=== PATIENT | female | born 1985 | race Caucasian/White ===

== ENCOUNTER 2017-12-18 09:02 | Emergency (ER) | payer MEDICAID ==
[~2017-12-18] VITALS: Ht 154.9 cm; Wt 45.0 kg
[~2017-12-18 09:02] MED LIST: CITA20TA4 PO
[2017-12-18 09:12] VITALS: BP 151/88; PULSE 104; RESP 16; TEMP 98.2; O2SAT 100
--- NOTE | 2017-12-18 09:26 | PD ---
HPI Chief Complaint: Related Problem Time Seen by Provider: 09:25 Travel History International Travel<30 days: No Contact w/Intl Traveler<30days: No Traveled to known affect area: No History of Present Illness HPI 32-year-old female came to the emergency room with history of vaginal spotting. She tested positive for on a home test yesterday. Patient says her last menstrual cycle was October 24. Patient is A2. She is also having some pelvic cramps. Vital signs are stable. Her spotting started this morning. No history of nausea vomiting. No radiation of the pain. No aggravating or relieving factors identified to the pain. PFSH Past Medical History Narrative Medical List of her past medical, surgical, social and family history is reviewed from the nursing note Depression: Yes ?: LMP: 09/13/17 Past Surgical History Cholecystectomy: Yes Social History Alcohol Use: Yes (occ) Tobacco Use: Yes (1 ppd) Substance Use: No Allergies-Medications (Allergen,Severity, Reaction): Coded Allergies: No Known Allergies (Unverified Adverse Reaction, Unknown, 12/18/17) Comments No known drug allergies. Reported Meds & Prescriptions Reported Meds & Active Scripts Active Narrative Medication List of her home medications reviewed from the nursing note Review of Systems Except as stated in HPI: all other systems reviewed are Neg Genitourinary: Positive: Vaginal Bleeding Physical Exam Narrative GENERAL: Awake, alert, no obvious distress SKIN: Focused skin assessment warm/dry. HEAD: Atraumatic. Normocephalic. EYES: Pupils equal and round. No scleral icterus. No injection or drainage. ENT: No nasal bleeding or discharge. Mucous membranes pink and moist. NECK: Trachea midline. No JVD. CARDIOVASCULAR: Regular rate and rhythm. No murmur appreciated. RESPIRATORY: No accessory muscle use. Clear to auscultation. Breath sounds equal bilaterally. GASTROINTESTINAL: Abdomen soft, non-tender, nondistended. Hepatic and splenic margins not palpable. MUSCULOSKELETAL: No obvious deformities. No clubbing. No cyanosis. No edema. NEUROLOGICAL: Awake and alert. No obvious cranial nerve deficits. Motor grossly within normal limits. Normal speech. PSYCHIATRIC: Appropriate mood and affect; insight and judgment normal. Data Data Last Documented VS Vital Signs Date Time Temp Pulse Resp B/P (MAP) Pulse Ox O2 Delivery O2 Flow Rate FiO2 12/18/17 09:12 98.2 104 16 151/88 (109) 100 Orders Orders Beta Hcg (Quant/Titer) (12/18/17 09:52) Complete Blood Count With Diff (12/18/17 09:52) Basic Metabolic Panel (Bmp) (12/18/17 09:52) Type And Screen (12/18/17 09:52) Ed Urine Pregnancytest Poc (12/18/17 09:52) Potassium Chloride Eff (K-Lyte Cl Eff) (12/18/17 11:30) Ed Discharge Order (12/18/17 11:26) Labs Laboratory Tests Test 12/18/17 10:30 White Blood Count 6.4 TH/MM3 Red Blood Count 4.69 MIL/MM3 Hemoglobin 14.3 GM/DL Hematocrit 41.7 % Mean Corpuscular Volume 89.1 FL Mean Corpuscular Hemoglobin 30.6 PG Mean Corpuscular Hemoglobin Concent 34.3 % Red Cell Distribution Width 12.7 % Platelet Count 213 TH/MM3 Mean Platelet Volume 9.9 FL Neutrophils (%) (Auto) 67.1 % Lymphocytes (%) (Auto) 20.1 % Monocytes (%) (Auto) 10.3 % Eosinophils (%) (Auto) 1.8 % Basophils (%) (Auto) 0.7 % Neutrophils # (Auto) 4.3 TH/MM3 Lymphocytes # (Auto) 1.3 TH/MM3 Monocytes # (Auto) 0.7 TH/MM3 Eosinophils # (Auto) 0.1 TH/MM3 Basophils # (Auto) 0.0 TH/MM3 CBC Comment DIFF FINAL Differential Comment Blood Urea Nitrogen 10 MG/DL Creatinine 0.81 MG/DL Random Glucose 89 MG/DL Calcium Level 8.6 MG/DL Sodium Level 141 MEQ/L Potassium Level 3.2 MEQ/L Chloride Level 108 MEQ/L Carbon Dioxide Level 24.0 MEQ/L Anion Gap 9 MEQ/L Estimat Glomerular Filtration Rate 82 ML/MIN Human Chorionic Gonadotropin, Quant 598 MIU/ML MDM Medical Decision Making Medical Screen Exam Complete: Yes Emergency Medical Condition: Yes Medical Record Reviewed: Yes Differential Diagnosis Threatened , early with bleed Narrative Course 11:23 AM blood test results are back and it is within normal limits. Beta-hCG is 583. Based on this and ultrasound would not be beneficial since nothing may be seen on the ultrasound. I will asked the patient to return in 48 hours to get a repeat beta-hCG. She will also be recommended to follow-up with OB. Patient is O+. Procedures EKG Prior to Arrival: No Diagnosis Primary Impression: Threatened Referrals: [facility] 2 days Additional Instructions: Please return to the ER or go to [facility] in 48 hours to get a repeat beta-hCG blood test done. Return to the ER earlier if symptoms worsen or any other new concerns. No vaginal intercourse, tampons or douching or anything in the vagina until the bleeding has stopped and you have a clearance from PRIMING MACHINE OPERATOR. Take 1 vitamin every day. Drink lots of fluid for the purpose and eat healthy. Do not smoke cigarettes or street drugs or drink alcohol since it is harmful . Med/Other Pt SpecificInfo: No Change to Meds Disposition: 01 DISCHARGE HOME Condition: Stable Leighton Mccabe MD Dec 18, 2017 09:26
[2017-12-18 10:56] LABS: AUTOMATED NEUTROPHIL # 4.3 TH/MM3 (1.8-7.7); BASOPHIL % 0.7 % (0.0-2.0); EOSINOPHIL # 0.1 TH/MM3 (0-0.4); EOSINOPHIL % 1.8 % (0.0-4.0); HEMATOCRIT 41.7 % (35.0-46.0); HEMOGLOBIN 14.3 GM/DL (11.6-15.3); LYMPH % 20.1 % (9.0-44.0); LYMPHOCYTE # 1.3 TH/MM3 (1.0-4.8); MEAN CELL VOLUME 89.1 FL (80.0-100.0); MEAN CORPUSCULAR HEMOGLOBIN 30.6 PG (27.0-34.0); MEAN CORPUSCULAR HGB CONC 34.3 % (32.0-36.0); MEAN PLATELET VOLUME 9.9 FL (7.0-11.0); MONO % 10.3 % (0.0-8.0); MONOCYTE # 0.7 TH/MM3 (0-0.9); NEUT % 67.1 % (16.0-70.0); PLATELET COUNT 213 TH/MM3 (150-450); RED BLOOD COUNT 4.69 MIL/MM3 (4.00-5.30); RED CELL DISTRIBUTION WIDTH 12.7 % (11.6-17.2); WHITE BLOOD COUNT 6.4 TH/MM3 (4.0-11.0)
[2017-12-18 11:11] LABS: CALCIUM 8.6 MG/DL (8.5-10.1); CREATININE 0.81 MG/DL (0.50-1.00)
[2017-12-18] MEDS ORDERED: POTASSIUM CHLORIDE 25 MEQ EFFERVESCENT TAB PO ONE (11:30)
== END 2017-12-18 12:14 | disposition home or self-care (01) ==
LOC: NEPD 09:02
DX: O20.0 Threatened abortion (principal); R10.2 Pelvic and perineal pain; F17.210 Nicotine dependence, cigarettes, uncomplicated
CPT/HCPCS: 80048; 84702; 84703; 85025; 86850; 86900; 86901; 99283

== ENCOUNTER 2017-12-20 11:44 | Emergency (ER) | payer SELFPAY ==
[~2017-12-20] VITALS: Ht 154.9 cm; Wt 40.0 kg
[2017-12-20 11:46] VITALS: BP 144/83; PULSE 91; RESP 16; TEMP 98.7; O2SAT 99
--- NOTE | 2017-12-20 12:09 | PD ---
HPI Chief Complaint: Related Problem Time Seen by Provider: 11:49 Travel History International Travel<30 days: No Contact w/Intl Traveler<30days: No Traveled to known affect area: No History of Present Illness HPI Patient is a 32 year old female who returns to the ER for repeat HCG quant. Patient was seen in the ER on December 18, 2017 as she had a positive test and had some vaginal bleeding. At that time, HCG quant was 598 - she was told to return to the ER or to her invertebrate paleontologist in 48 hours for repeat blood work ( HCG quant) as there were concerns that she may be miscarrying . Patient reports that she is still continuing to have some irregular vaginal bleeding, she is here for repeat hCG quant as she does not have an MORNING SHOW HOST to follow-up with. PFSH Past Medical History Depression: Yes Diminished Hearing: Yes (TYMPANO SCLEROSIS, MYRINGOSCLEROSIS) ?: : 4 Para: 1 Miscarriage: 3 : 0 Past Surgical History Cholecystectomy: Yes Social History Alcohol Use: Yes (occ) Tobacco Use: Yes (1 ppd) Substance Use: No Allergies-Medications (Allergen,Severity, Reaction): Coded Allergies: No Known Allergies (Unverified Adverse Reaction, Unknown, 12/18/17) Reported Meds & Prescriptions Reported Meds & Active Scripts Active Review of Systems General / Constitutional: No: Fever Eyes: No: Visual changes HENT: No: Headaches Cardiovascular: No: Chest Pain or Discomfort Respiratory: No: Shortness of Breath Gastrointestinal: No: Abdominal Pain Genitourinary: Positive: Vaginal Bleeding, No: Dysuria, Pelvic Pain, Discharge Musculoskeletal: No: Pain Skin: No Rash Neurologic: No: Weakness Psychiatric: No: Depression Endocrine: No: Polydipsia Hematologic/Lymphatic: No: Easy Bruising Physical Exam Narrative GENERAL: NAD SKIN: Focused skin assessment warm/dry. HEAD: Atraumatic. Normocephalic. EYES: Pupils equal and round. No scleral icterus. No injection or drainage. ENT: No nasal bleeding or discharge. Mucous membranes pink and moist. NECK: Trachea midline. No JVD. CARDIOVASCULAR: Regular rate and rhythm. No murmur appreciated. RESPIRATORY: No accessory muscle use. Clear to auscultation. Breath sounds equal bilaterally. GASTROINTESTINAL: Abdomen soft, non-tender, nondistended. Hepatic and splenic margins not palpable. MUSCULOSKELETAL: No obvious deformities. No clubbing. No cyanosis. No edema. NEUROLOGICAL: Awake and alert. No obvious cranial nerve deficits. Motor grossly within normal limits. Normal speech. PSYCHIATRIC: Appropriate mood and affect; insight and judgment normal. Data Data Last Documented VS Vital Signs Date Time Temp Pulse Resp B/P (MAP) Pulse Ox O2 Delivery O2 Flow Rate FiO2 12/20/17 11:46 98.7 91 16 144/83 (103) 99 Orders Orders Beta Hcg (Quant/Titer) (12/20/17 11:50) Labs Laboratory Tests Test 12/20/17 12:00 Human Chorionic Gonadotropin, Quant 1246 MIU/ML MDM Medical Decision Making Medical Screen Exam Complete: Yes Emergency Medical Condition: Yes Medical Record Reviewed: Yes Interpretation(s) Vital Signs Date Time Temp Pulse Resp B/P (MAP) Pulse Ox O2 Delivery O2 Flow Rate FiO2 12/20/17 11:46 98.7 91 16 144/83 (103) 99 Differential Diagnosis Threatened miscarriage, early Narrative Course HCG quant 2 days ago was 598, repeat quant was ordered. Laboratory Tests Test 12/20/17 12:00 Human Chorionic Gonadotropin, Quant 1246 MIU/ML (0-5) Repeat HCG quant 1246, patient aware of hcg quant, patient with diagnosis of threatened miscarriage. She will follow up with invertebrate paleontologist. She will return to ER as needed. Understands need for pelvic rest until she is seen and cleared by obgyn. Patient safe to be discharged to home as she is comfortable with no abdominal pain or cramping. VSS Diagnosis Primary Impression: Threatened miscarriage Patient Instructions: General Instructions Additional Instructions: Your HCG quant is 1246 today Pelvic rest until you are seen and cleared by your MORNING SHOW HOST Return to the emergency room as needed Disposition: 01 DISCHARGE HOME Condition: Stable CruzAntonia Dec 20, 2017 12:09
[2017-12-20] MEDS ORDERED: PERC5TAB12 PO (13:20)
== END 2017-12-20 13:41 | disposition home or self-care (01) ==
LOC: NEPD 11:44
DX: O20.0 Threatened abortion (principal); O99.340 Other mental disorders complicating pregnancy, unspecified trimester; F32.9 Major depressive disorder, single episode, unspecified; O99.330 Smoking (tobacco) complicating pregnancy, unspecified trimester; F17.200 Nicotine dependence, unspecified, uncomplicated; Z3A.00 Weeks of gestation of pregnancy not specified
CPT/HCPCS: 84702; 99281